=== PATIENT | male | born 1965 | race Caucasian/White ===

== ENCOUNTER 2017-06-06 20:35 | Inpatient (IN) | payer MEDICAID ==
[2017-06-06] MEDS ORDERED: NS 1,000 ML IV ONE ×2 (21:12→22:03)
[2017-06-06 21:19] LABS: PLATELET COUNT 168 10^3/uL (150-400)
--- NOTE | 2017-06-06 21:36 | EDPHY ---
H & P Time Seen by Provider: 06/06/17 21:16 HPI/ROS: CHIEF COMPLAINT: Alcohol intoxication, not eating and vomiting HISTORY OF PRESENT ILLNESS: Patient's roommates called and EMS brought into the ED. For the last 3 days he has been drinking vodka and not eating. Several episodes of vomiting, in the nurse's notes states"something red"but no melena and no red blood per rectum. Denies abdominal pain. Currently he has no medical symptoms when I interviewed him. REVIEW OF SYSTEMS: Eye: no change in vision ENT: no sore throat Cardiac: no chest pain or syncope Pulmonary: no cough or SOB Abdomen: HPI Musculoskeletal: no back pain Skin: no rash Neuro: no headache Constitutional: no fever : no urinary symptoms A comprehensive 10 point review of systems is otherwise negative aside from elements mentioned in the history of present illness. PAST MEDICAL HISTORY: Includes hypertension, gout, alcohol abuse Social history: Recent vodka General Appearance: Alert and conversant, cooperative. Eyes: No scleral icterus. ENT, Mouth: Normal mucous membranes. Respiratory: Normal respiratory effort, breath sounds equal, lungs are clear to auscultation. Cardiovascular: Regular rate and rhythm. Gastrointestinal: Abdomen is soft and non tender. Rectal exam shows yellow stool no melena Neurological: Alert, face symmetric, normal motor and sensory in extremities. Slower to respond, but does answer questions appropriately. Skin: Warm and dry, no rashes. Musculoskeletal: No peripheral edema. Psychiatric: Not agitated. Emergency Department course/MDM: Serial exams, CBC and rectal exam, doubt upper GI bleed or lower GI bleed. Hematocrit 41 a negative stool occult blood. 2203: Creatinine is 2.9, elevated from baseline, likely from dehydration and vomiting. BUN 55, normal sodium. Admission for IV fluids and rehydration. Smoking Status: Current every day smoker Constitutional: Initial Vital Signs Temperature (C) 36.6 C 06/06/17 20:47 Heart Rate 66 06/06/17 20:47 Respiratory Rate 18 06/06/17 20:47 Blood Pressure 97/65 L 06/06/17 20:47 O2 Sat (%) 94 06/06/17 20:47 O2 Delivery Mode Room Air Allergies/Adverse Reactions: No Known Allergies Allergy (Verified 06/08/15 09:11) Home Medications: Medication Instructions Recorded Atenolol [Tenormin 50 mg (*)] 50 mg PO DAILY 10/13/14 Lisinopril [Zestril 40 mg (*)] 40 mg PO DAILY 12/16/13 Medical Decision Making Consult/Admit Bed Type: [place] [id number] - Data Points Laboratory Results: Laboratory Results 06/06/17 20:45 06/06/17 20:45 06/06/17 06/06/17 06/06/17 21:30 20:45 20:45 WBC 9.98 10^3/uL H 10^3/uL (3.80-9.50) RBC 4.49 10^6/uL 10^6/uL (4.40-6.38) Hgb 14.1 g/dL g/dL (13.7-17.5) Hct 41.4 % % (40.0-51.0) MCV 92.2 fL fL (81.5-99.8) MCH 31.4 pg pg (27.9-34.1) MCHC 34.1 g/dL g/dL (32.4-36.7) RDW 14.3 % % (11.5-15.2) Plt Count 168 10^3/uL 10^3/uL (150-400) MPV 10.3 fL fL (8.7-11.7) Neut % (Auto) 36.7 % L % (39.3-74.2) Lymph % (Auto) 53.7 % H % (15.0-45.0) [place] % (Auto) 6.0 % % (4.5-13.0) Eos % (Auto) 1.7 % % (0.6-7.6) Baso % (Auto) 1.6 % % (0.3-1.7) Nucleat RBC Rel Count 0.0 % % (0.0-0.2) Absolute Neuts (auto) 3.66 10^3/uL 10^3/uL (1.70-6.50) Absolute Lymphs (auto) 5.36 10^3/uL H 10^3/uL (1.00-3.00) Absolute Monos (auto) 0.60 10^3/uL 10^3/uL (0.30-0.80) Absolute Eos (auto) 0.17 10^3/uL 10^3/uL (0.03-0.40) Absolute Basos (auto) 0.16 10^3/uL H 10^3/uL (0.02-0.10) Absolute Nucleated RBC 0.00 10^3/uL 10^3/uL (0-0.01) Immature Gran % 0.3 % % (0.0-1.1) Immature Gran # 0.03 10^3/uL 10^3/uL (0.00-0.10) Sodium 141 mEq/L mEq/L (135-145) Potassium 4.9 mEq/L mEq/L (3.5-5.2) Chloride 103 mEq/L mEq/L (97-110) Carbon Dioxide 15 mEq/l L mEq/l (22-31) Anion Gap 23 mEq/L H mEq/L (8-16) BUN 55 mg/dL H mg/dL (7-23) Creatinine 2.9 mg/dL H mg/dL (0.7-1.3) Estimated GFR 23 Glucose 64 mg/dL L mg/dL (70-100) Calcium 9.4 mg/dL mg/dL (8.5-10.4) Stool Occult Bld Scrn NEGATIVE (NEGATIVE) Ethyl Alcohol 414 mg/dL H* mg/dL (0-10) Medications Given: Discontinued Medications Sodium Chloride (Ns) 1,000 mls @ 0 mls/hr IV EDNOW ONE; Wide Open PRN Reason: Protocol Stop: 06/06/17 21:13 Last Admin: 06/06/17 21:18 Dose: 1,000 mls Sodium Chloride (Ns) 1,000 mls @ 0 mls/hr IV EDNOW ONE; Wide Open PRN Reason: Protocol Stop: 06/06/17 22:04 Last Admin: 06/06/17 22:05 Dose: 1,000 mls Departure - Departure Disposition: Home, Routine, Self-Care Clinical Impression: Dehydration Acute renal failure (ARF) Qualifiers: Acute renal failure type: unspecified Qualified Code(s): N17.9 - Acute kidney failure, unspecified Alcoholic intoxication Qualifiers: Complication of substance-induced condition: uncomplicated Qualified Code(s): F10.920 - Alcohol use, unspecified with intoxication, uncomplicated Condition: Fair
[2017-06-06] MEDS: NS 1,000 ML IV SCH (23:33)
[2017-06-06] MEDS: NICOTINE 21 MG/24 HR PATCH TD SCH (23:57)
[2017-06-07] MEDS ORDERED: PANTOPRAZOLE SODIUM 40 MG VIAL IVP ONE (02:51)
--- NOTE | 2017-06-07 02:57 | PDGENHP ---
History and Physical - Chief Complaint nausea vomiting and gi upset - History of Present Illness Source - Patient is able to provide some of the history. He is currently intoxicated but interactive and consistent with answers although I am unable to confirm accuracy. EMR was reviewed and case discussed with ED provider. HPI - Pleasant 51 yo M with pmhx significant for etoh dependence/abuse, HTN, gout, OA, asthma and seasonal allergies who presents to the ED today after roommates called EMS for intractable nausea/vomiting starting today. PAtient reports he has been drinking the last 3 days (1 pint vodka) without any solid food intake. He denies any abdominal pain/melena/hematochezia. Patient does note subjective fevers/chills today. He has chronic rhinorrhea resolved with laying down. He denies any cough worsened from baseline. Patient denies any dysuria/hematuria. He does reports occasional posttussive emesis related to his asthma. History Information - Allergies/Home Medication List Allergies/Adverse Reactions: No Known Allergies Allergy (Verified 06/08/15 09:11) Home Medications: Atenolol [Tenormin 50 mg (*)] 50 mg PO DAILY 12/16/13 [Last Taken 12/16/13] Lisinopril [Zestril 40 mg (*)] 40 mg PO DAILY 12/16/13 [Last Taken 12/16/13] I have personally reviewed and updated: family history, medical history, social history, surgical history - Past Medical History Additional medical history: alcohol dependence with reports of alcohol withdrawal seizures. benign essential HTN, gout, OA, asthma and seasonal allergies - Surgical History Additional surgical history: umbilical hernia repair in youth. appy , septoplasty/sinus surgery. - Family History Additional family history: father - prostate CA. - Social History Smoking Status: Current every day smoker (0.5-0.75 ppd.) Tobacco Use: Cigarettes Alcohol Use: Heavy (1 pint vodka daily if not more.) Drug Use: Marijuana Review of Systems Review of Systems: ROS: 10pt was reviewed & negative except for what was stated in HPI & below Constitutional: Reports: chills, fever. Denies: recent illness EENMT: Reports: nose congestion (Neck rhinorrhea). Denies: double vision, sore throat Cardiac: Reports: no symptoms Respiratory: Reports: cough (Occasional moderate duct of baseline). Denies: shortness of breath Gastrointestinal: Reports: vomitting, nausea. Denies: black stools, rectal bleeding, abdominal pain, diarrhea Genitourinary: Denies: dysuria, hematuria Muscolosketal: Reports: no symptoms Skin: Reports: no symptoms Neurological: Reports: no symptoms Hematologic/Lymphatic: Reports: no symptoms Physical Exam Physical Exam: Selected Entries 06/06/17 20:47 Blood Pressure Automatic Method Heart Rate 66 Respiratory 18 Rate O2 Sat (%) 94 Temperature (C) 36.6 C Blood Pressure 97/65 L Mean Arterial 75 Pressure (MAP) O2 Delivery Room Air Mode Temperature Oral Source Temp Pulse Resp BP Pulse Ox 36.4 C 65 14 102/61 93 06/06/17 22:45 06/06/17 22:45 06/06/17 22:45 06/06/17 22:45 06/06/17 22:45 O2 (L/minute) 1 Constitutional: no apparent distress, not in pain, unkempt, other (NAD. Adult male is lying quietly in bed asleep. He wakes to name. Interactive and inebriated) Eyes: PERRL, anicteric sclera, EOMI, scleral injection Ears, Nose, Mouth, Throat: no oral mucosal ulcers, poor dentition, dry mucous membranes Cardiovascular: regular rate and rhythym, no murmur, rub, or gallop, pulses symmetric bilaterally, No edema Peripheral Pulses: 2+: dorsalis-pedis (R), dorsalis-pedis (L) Respiratory: no respiratory distress, no rales or rhonchi, clear to auscultation , reduced air movement (A diminished at the bases.), No expiratory wheeze Gastrointestinal: normoactive bowel sounds, soft, non-tender abdomen, No guarding, No distension Genitourinary: no bladder tenderness, No mac in urethra Skin: warm, normal color, no rashes or abrasions, No rash Musculoskeletal: full muscle strength, other (Patient moves all extremities while lying in bed. Speed intact.), No generalized weakness Neurologic: AAOx3, CN II-XII Intact, other (No tremor.), No facial droop Psychiatric: poor insight, other (inebriated), No not anxious, No thought process linear, No anxious, No suicidal ideation, No agitated Lab Data & Imaging Review 06/06/17 20:45 06/06/17 20:45 WBC 9.98 10^3/uL (3.80-9.50) H 06/06/17 20:45 RBC 4.49 10^6/uL (4.40-6.38) 06/06/17 20:45 Hgb 14.1 g/dL (13.7-17.5) 06/06/17 20:45 Hct 41.4 % (40.0-51.0) 06/06/17 20:45 MCV 92.2 fL (81.5-99.8) 06/06/17 20:45 MCH 31.4 pg (27.9-34.1) 06/06/17 20:45 MCHC 34.1 g/dL (32.4-36.7) 06/06/17 20:45 RDW 14.3 % (11.5-15.2) 06/06/17 20:45 Plt Count 168 10^3/uL (150-400) 06/06/17 20:45 MPV 10.3 fL (8.7-11.7) 06/06/17 20:45 Neut % (Auto) 36.7 % (39.3-74.2) L 06/06/17 20:45 Lymph % (Auto) 53.7 % (15.0-45.0) H 06/06/17 20:45 [place] % (Auto) 6.0 % (4.5-13.0) 06/06/17 20:45 Eos % (Auto) 1.7 % (0.6-7.6) 06/06/17 20:45 Baso % (Auto) 1.6 % (0.3-1.7) 06/06/17 20:45 Nucleat RBC Rel Count 0.0 % (0.0-0.2) 06/06/17 20:45 Absolute Neuts (auto) 3.66 10^3/uL (1.70-6.50) 06/06/17 20:45 Absolute Lymphs (auto) 5.36 10^3/uL (1.00-3.00) H 06/06/17 20:45 Absolute Monos (auto) 0.60 10^3/uL (0.30-0.80) 06/06/17 20:45 Absolute Eos (auto) 0.17 10^3/uL (0.03-0.40) 06/06/17 20:45 Absolute Basos (auto) 0.16 10^3/uL (0.02-0.10) H 06/06/17 20:45 Absolute Nucleated RBC 0.00 10^3/uL (0-0.01) 06/06/17 20:45 Immature Gran % 0.3 % (0.0-1.1) 06/06/17 20:45 Immature Gran # 0.03 10^3/uL (0.00-0.10) 06/06/17 20:45 Sodium 141 mEq/L (135-145) 06/06/17 20:45 Potassium 4.9 mEq/L (3.5-5.2) 06/06/17 20:45 Chloride 103 mEq/L (97-110) 06/06/17 20:45 Carbon Dioxide 15 mEq/l (22-31) L 06/06/17 20:45 Anion Gap 23 mEq/L (8-16) H 06/06/17 20:45 BUN 55 mg/dL (7-23) H 06/06/17 20:45 Creatinine 2.9 mg/dL (0.7-1.3) H 06/06/17 20:45 Estimated GFR 23 06/06/17 20:45 Glucose 64 mg/dL (70-100) L 06/06/17 20:45 POC Glucose 92 mg/dL (70-100) 06/07/17 00:23 Calcium 9.4 mg/dL (8.5-10.4) 06/06/17 20:45 Total Bilirubin 0.8 mg/dL (0.1-1.4) 06/06/17 20:45 Conjugated Bilirubin 0.6 mg/dL (0.0-0.5) H 06/06/17 20:45 Unconjugated Bilirubin 0.2 mg/dL (0.0-1.1) 06/06/17 20:45 AST 70 IU/L (17-59) H 06/06/17 20:45 ALT 52 IU/L (21-72) 06/06/17 20:45 Alkaline Phosphatase 76 IU/L (38-126) 06/06/17 20:45 Total Protein 8.8 g/dL (6.3-8.2) H 06/06/17 20:45 Albumin 4.9 g/dL (3.5-5.0) 06/06/17 20:45 Lipase 183 IU/L (23-300) 06/06/17 20:45 Stool Occult Bld Scrn NEGATIVE (NEGATIVE) 06/06/17 21:30 Ethyl Alcohol 414 mg/dL (0-10) H* 06/06/17 20:45 Assessment & Plan Assessment: 51-year-old male with his alcohol dependence under recent 3 day binge of hard liquor who presents emergency department with nausea vomiting fen have acute renal failure. #Acute renal failure (ARF) (Acute) - likely pre renal in nature given patient's hypotension and severe dehydration. Repeat BMP in the morning. Monitor electrolytes. #Nausea vomiting - likely related to alcohol gastritis. It will be give dose of IV Protonix on and then started on a p. O. Once he is able to tolerate diet. #Dehydration (Acute) - related to poor oral intake and nausea and vomiting. Continue with IV fluid placement #Hypotension - resolved status post L in the emergency department will saline. Secondary to hypovolemia. #Alcoholic intoxication (Acute) - patient not interested in cessation at this time but this was courage. He will based on the while protocol but currently is inebriated. alcohol level is greater than 400. Pale be plan see protocol. I ME Mac catheterization multivitamin we spent orally as tolerated. Will hold off on give patient any dextrose until he has received thiamine and can't tolerate any oral intake but has been able to sips juice. #Hypoglycemia - patient with this nausea vomiting and several days of a limited oral intake of solids. Will try have a med aunts diet. PPI as noted above. Alcohol cessation has been encouraged. Will monitor Accu-Cheks and patient's blood sugars stabilized. #History of benign essential hypertension - blood sugars improved status post IV fluids. Will monitor closely and hold off on patient's atenolol lisinopril is severe dehydration due renal failure time. #Asthma exacerbation - will make a albuterol treatment elbow can FEN - IVF as above. Electrolyte monitoring and replacement p.r.n.. Advance diet as tolerated. PPX-SCDs and Lovenox if patient should stay additional day Cor-full Disposition-patient admitted inpatient status given severity renal function and dehydration. Additionally patient with recurrent hypoglycemia that will need to be still eyes before discharge.
[2017-06-07] MEDS: HEPARIN 5,000 UNIT/0.5 ML SYR SC SCH ×4 (04:46→19:57)
[2017-06-07] MEDS ORDERED: LORazepam 2 MG/ML INJ IVP PRN (06:41)
[2017-06-07] MEDS: NS 1,000 ML IV SCH ×3 (07:23→22:55)
[2017-06-07] MEDS: THIAMINE HCL 100 MG TAB PO SCH ×2 (08:25→08:41)
[2017-06-07] MEDS: MULTIVITAMINS 1 EACH TAB PO SCH (08:25)
[2017-06-07 08:49] LABS: PLATELET COUNT 123 10^3/uL (150-400)
[2017-06-07] MEDS ORDERED: FOLIC ACID 1 MG TAB PO SCH (09:00)
[2017-06-07 09:11] LABS: INR 1.12 (0.83-1.16); PROTIME(PATIENT) 14.6 SEC (12.0-15.0)
--- NOTE | 2017-06-07 10:00 | PDMN ---
Medical Necessity Medical necessity: est los>2mn for ARF, N/V r/t alcohol gastritis, dehydration, etoh intoxication, hypoglycemia, and asthma exacerbation; admit for IVF, IV PPI , monitor glucose, and CIWA; comorbid htn, etoh abuse with hx withdrawal sz's; per order and H&P 06/06/17
--- NOTE | 2017-06-07 11:05 | HOSPPROG ---
Hospitalist Progress Note Assessment/Plan: #YAIMA: due to hypotension, dehydration. Cont IVFs. Hold MOSES-I. Check UA and lytesHy #Etoh intoxication: monitor for withdrawal. Counseled on cessation. Does not want to quit #Hypoglycemia: due to decreased PO intake. No signs of infection. No eating #N/V: due to gastritis #Asthma: no signs of exacerbation #Acute hypoxic resp failure: #h/o HTN: hold MOSES-I with YAIMA #DVT ppx: SCDs #Disp: cont inpatient admission for IVFs, Etoh w/d Subjective: mild nausea today Objective: Vital Signs Temp Pulse Resp BP Pulse Ox 36.8 C 78 18 101/63 97 06/07/17 07:36 06/07/17 07:36 06/07/17 07:36 06/07/17 07:36 06/07/17 07:36 Laboratory Results 06/07/17 08:27 06/07/17 08:27 06/06/17 06/07/17 06/08/17 05:59 05:59 05:59 Intake Total 3485 Output Total 550 875 Balance 2935 -875 PT 14.6 SEC (12.0-15.0) 06/07/17 08:27 INR 1.12 (0.83-1.16) 06/07/17 08:27 - Physical Exam Constitutional: no apparent distress Eyes: PERRL Ears, Nose, Mouth, Throat: dry mucous membranes Cardiovascular: regular rate and rhythym Respiratory: no respiratory distress Gastrointestinal: tenderness (mild epigastric TTP) Genitourinary: no bladder fullness Skin: warm Musculoskeletal: full muscle strength Neurologic: AAOx3, CN II-XII Intact, other (mild tongue fasiculations and hand tremors), No asterixes Psychiatric: interacting appropriately ICD10 Worksheet Patient Problems: Problems Problem Status Onset Acute renal failure (ARF) Acute Alcoholic intoxication Acute Dehydration Acute Community acquired pneumonia Acute
[2017-06-07] MEDS: ONDANSETRON 4 MG/2 ML VIAL IVP PRN (11:45)
--- NOTE | 2017-06-07 15:52 | ASMTCAGE ---
CAGE Do you feel you ought to Answers: Yes cut down on your drinking or drug use? Do people annoy you by Answers: No criticizing your drinking or drug use? Do you feel guilty about Answers: No your drinking or drug use? Do you drink or use drugs Answers: No first thing in the morning ([employer] Counselor)? Date Signed: 06/07/2017 03:52 PM Electronically Signed By:MARGARET Hill
--- NOTE | 2017-06-07 16:00 | ASMTCASEMG ---
Living Arrangements What is your living Answers: Alone arrangement? Who do you live with? Type Of Residence What kind of residence do Answers: Apartment you live in? Discharge Plan Comments Coordination Status Comments Notes: Pt is a 51 y/o man admitted for dehydration and ARF. Pt reportedly uses ETOH daily. Pt reports that he only drinks after he gets out of work and buys a pint at a time to control his etoh intake. CM met w/ pt for dispo planning. Pt does not have any interest on stopping his etoh. Pt is not interested in resources at this time. CM informed pt to contact his PCP if he ever wanted to stop drinking. No other anticipated needs at this time. No therapies ordered at this time. CM to follow. Plan: Independent Date Signed: 06/07/2017 04:00 PM Electronically Signed By:MARGARET Hill
[2017-06-07] MEDS: NICOTINE 21 MG/24 HR PATCH TD SCH (20:36)
[2017-06-08] MEDS ORDERED: ACETAMINOPHEN 500 MG TAB PO PRN (01:32)
[2017-06-08 04:26] VITALS: RESP 18
[2017-06-08] MEDS ORDERED: ATENOLOL 50 MG TAB PO SCH (05:00)
[2017-06-08] MEDS ORDERED: FOLIC ACID 1 MG TAB PO SCH (05:00)
[2017-06-08] MEDS: HEPARIN 5,000 UNIT/0.5 ML SYR SC SCH (05:43)
[2017-06-08] MEDS ORDERED: PANTOPRAZOLE SODIUM 40 MG TAB PO SCH (06:00)
[2017-06-08] MEDS: NS 1,000 ML IV SCH (06:31)
[2017-06-08 07:41] VITALS: BP 144/103; PULSE 67; TEMP 97.7; O2SAT 94
[2017-06-08] MEDS ORDERED: Herbals/Supplements -Info Only PO SCH (09:00)
[2017-06-08] MEDS: THIAMINE HCL 100 MG TAB PO SCH (10:34)
[2017-06-08] MEDS: MULTIVITAMINS 1 EACH TAB PO SCH (10:34)
[2017-06-08] MEDS: ONDANSETRON 4 MG/2 ML VIAL IVP PRN (10:35)
--- NOTE | 2017-06-08 13:33 | GDS ---
[f rep st] DISCHARGE SUMMARY DISCHARGE DIAGNOSES: 1. Acute kidney injury secondary to nausea and vomiting. 2. Alcohol intoxication. 3. Hypoglycemia. 4. Nausea, vomiting. 5. Asthma. 6. Acute hypoxic respiratory failure. 7. Hypertension. HISTORY OF PRESENT ILLNESS: A 51-year-old male with alcohol dependence, drinking at least a pint daily, hypertension, who was brought in by EMS after roommate called for intractable nausea/vomiting. The patient says he had been drinking, for the past 3 days, a pint of vodka without any solid food intake. He denied any abdominal pain, melena, or hematochezia. He endorsed mild subjective fevers and chills. Had chronic rhinorrhea, resolved when lying down. No productive cough. No shortness of breath. HOSPITAL COURSE BY PROBLEM: 1. YAIMA: due to decreased p.o. intake, nausea, and vomiting. Creatinine has normalized to 1 with IV fluids. Encouraged to drink plenty of fluids. 2. Alcohol intoxication: Counseled him extensively on cessation. He has no desire to quit and understands the risks could be detrimental and life- threatening. 3. Hypoglycemia: resolved once eating normal meals. No signs or symptoms of infection. 4. Nausea/vomiting: gastritis related to Etoh. 5. Asthma: No evidence of exacerbation. 6. Acute hypoxic respiratory failure: due to acute intoxication. Now stable on RA.. 7. Hypertension: held MOSES-I with YAIMA, but he may resume this and atenolol. DISPOSITION: Patient is stable for discharge home. MEDICATIONS: Resume home medications. FOLLOWUP: Primary care physician in 2-4 weeks. Encourage treatment for alcohol. PHYSICAL EXAMINATION: VITAL SIGNS: Today, temperature 36.5, blood pressure 151 /96, heart rate in the 60s, respiration rate 18, 94% on room air. GENERAL: Well appearing, sitting up, smiling, more color. HEENT: PERRLA. Moist mucous membranes. CV: Regular rate and rhythm. No murmurs, gallops, or rubs. LUNGS : Clear. ABDOMEN: Soft. Mild epigastric tenderness. No rebound or guarding. : No Long. MUSCULOSKELETAL: 5/5 upper and lower extremity strength. NEUROLOGIC: 2 through 12 intact. PSYCH: Alert and oriented x3. /[id number]/[facility]
== END 2017-06-08 12:00 | disposition home or self-care (01) | DRG 682 ==
LOC: EDUNIT# → F2W 22:45
PROVIDERS: ADMIT Family Medicine; ATTEND Internal Medicine
DX: N17.9 Acute kidney failure, unspecified (principal); J96.01 Acute respiratory failure with hypoxia; F10.229 Alcohol dependence with intoxication, unspecified; E16.2 Hypoglycemia, unspecified; K29.20 Alcoholic gastritis without bleeding; J45.909 Unspecified asthma, uncomplicated
CPT/HCPCS: G0480; J1644; J2060; J2405

== ENCOUNTER 2017-08-02 20:48 | Emergency (ER) | payer MEDICAID ==
--- NOTE | 2017-08-02 21:15 | EDPHY ---
General - History Smoking Status: Current every day smoker Time Seen by Provider: 08/02/17 21:06 Narrative: CHIEF COMPLAINT: Fall, intoxicated, hematoma HISTORY OF PRESENT ILLNESS: Patient presents by EMS with reports of alcohol intoxication and fall. He says that he does not know what happened but "of course I was drinking. I drink like a fish." He says that he does not know exactly what happened, but he fell. He struck his head on an unknown surface. He knows that he did not lose consciousness because he has been awake ever since. He has a mild headache just where the"bump is on my head." No neck pain or stiffness. No vomiting. No visual disturbance. No injury elsewhere. He admits to heavy alcohol ingestion and some marijuana use tonight. No other associated complaints or modifying factors. REVIEW OF SYSTEMS: Ten systems reviewed and are negative unless otherwise noted in the HPI PCP: Dr. Severino SPECIALISTS: None PAST MEDICAL HISTORY: Hypertension, gout, alcohol abuse PAST SURGICAL HISTORY: No recent surgeries SOCIAL HISTORY: Daily smoker. Daily heavy alcohol use. Occasional marijuana use FAMILY HISTORY: Noncontributory EXAMINATION General Appearance: Alert, no distress Head: normocephalic. Left forehead hematoma measuring 2 cm. No bleeding. No depression. No Goldsmith sign. No raccoon eyes. Eyes: Pupils equal and round, no conjunctival pallor or injection. EOMs symmetric with no nystagmus or dysconjugate gaze. ENT, Mouth: Mucous membranes moist Neck: Normal inspection. C-collar placed after arrival. Midline trachea Respiratory: Lungs are clear to auscultation Cardiovascular: Regular rate and rhythm Gastrointestinal: Abdomen is soft and nontender Back: non-tender, no bony abnormalities Neurological: GCS 15. A&O, nonfocal, normal gait. Strength is symmetric. Normal finger to nose. No dysmetria Skin: Warm and dry, no rash. Left forehead frontal hematoma as above. Extremities: Nontender, no pedal edema Psychiatric: Mood and affect normal DIFFERENTIAL DIAGNOSES: Including but not limited to hematoma, skull fracture, intracranial hemorrhage, concussion, blunt trauma MDM: 9:10 p.m. Acute alcohol intoxication with reported mechanical fall on frontal hematoma. He has no complaints of any kind other than wanting to go home. Because he is intoxicated I cannot clear him clinically by nexus criteria, thus he will be placed in a C-collar and we will obtain CT scans of the head cervical spine. He is in no acute distress. Vital signs are stable with strong odor of alcohol about him. 9:57 p.m. Notified by radiologist Dr. Alicia. CT scans of the head and cervical spine reveal no acute findings. 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 There is also remote injury to C2 this congenital versus old trauma. I re-evaluated the patient. Clear the cervical collar as it was placed here not by EMS. He remains neuro intact in the extremities post removal. Range of motion is supple and without any pain. He is intoxicated but he is awake and alert no acute distress. We will attempt ambulating. 10:08 p.m. The patient has ambulated in the emergency department with no difficulty. He is not ataxic. He has no nystagmus. However, he does have mild hypoxemia on room air that have just been notified of. He was ambulated around the emergency department and his pulse oximetry is at 86-88% on room air. We will continue to monitor this, and I will administer a DuoNeb as he is a smoker. I have also ordered a chest x-ray to rule out pneumonia. He has no respiratory or thoracic complaints at this time 11:00 p.m. The patient has ambulated without difficulty. His oxygenation has remained within normal limits after the DuoNeb treatment. No pneumonia on chest x-ray. I do feel he is stable for discharge home. I discussed with Dr. Rai, and she agrees. The patient will be taken home by cab. Discharged stable condition. SUPERVISION: Patient was independently examined, but I discussed the case with my secondary supervising physician Dr. Rai ([facility]) Discussion: The patient was evaluated and managed by the Physician Chair Finisher. I discussed the patient's presentation and course with the physician environmental engineering assistant and agree with the evaluation. My co-signature indicates that I have reviewed this chart and I agree with the findings and plan of care as documented. I am the secondary supervising physician. (Nohemi Rai) - Objective Vital Signs: Initial Vital Signs Temperature (C) 36.6 C 08/02/17 20:45 Heart Rate 89 08/02/17 20:45 Respiratory Rate 18 08/02/17 20:45 Blood Pressure 106/75 08/02/17 20:45 O2 Sat (%) 94 08/02/17 20:45 O2 Delivery Mode Room Air O2 (L/minute) 2 Allergies/Adverse Reactions: No Known Allergies Allergy (Verified 06/08/15 09:11) Home Medications: Medication Instructions Recorded Herbals/Supplements -Info Only 1 ea PO DAILY 06/07/17 Lisinopril [Zestril 20 mg (*)] 20 mg PO DAILY@06/07/17 Medications Given: Discontinued Medications Albuterol/Ipratropium (Duoneb) 3 ml IH EDNOW ONE Stop: 08/02/17 22:10 Last Admin: 08/02/17 22:19 Dose: 3 ml Departure - Departure Disposition: Home, Routine, Self-Care Clinical Impression: Alcohol intoxication Hematoma of frontal scalp Qualifiers: Encounter type: initial encounter Qualified Code(s): S00.03XA - Contusion of scalp, initial encounter Closed head injury Qualifiers: Encounter type: initial encounter Qualified Code(s): S09.90XA - Unspecified injury of head, initial encounter Condition: Good Instructions: Concussion (ED), Head Injury (ED), Alcohol Intoxication (ED), Abuse of Alcohol (ED) Additional Instructions: 1. Contact primary care physician 2. Referrals: NONE *PRIMARY CARE P,. [Primary Care Provider] - As per Instructions
[2017-08-02] MEDS ORDERED: IPRATROPIUM/ALBUTEROL 3 ML DEYVIAL IH ONE (22:09)
[2017-08-02 23:27] VITALS: BP 138/88
== END 2017-08-02 23:25 | disposition home or self-care (01) ==
LOC: EDUNIT#
DX: S00.03XA Contusion of scalp, initial encounter (principal); F10.920 Alcohol use, unspecified with intoxication, uncomplicated; I10 Essential (primary) hypertension; F17.200 Nicotine dependence, unspecified, uncomplicated; W18.09XA Striking against other object with subsequent fall, initial encounter

== ENCOUNTER 2017-08-24 02:26 | Emergency (ER) | payer MEDICAID ==
--- NOTE | 2017-08-24 02:37 | EDPHY ---
H & P Stated Complaint: EtOH Source: EMS Exam Limitations: Intoxication - Personal History Current Tetanus Diphtheria and Acellular Pertussis (TDAP): Yes Tetanus Vaccine Date: 2011 - Medical/Surgical History Hx Asthma: No Hx Chronic Respiratory Disease: Yes Hx Diabetes: No Hx Cardiac Disease: No Hx Renal Disease: No Hx Cirrhosis: No Hx Alcoholism: No Hx HIV/AIDS: No Hx Splenectomy or Spleen Trauma: No Other PMH: HTN, gout, ETOH abuse. bronchitis - Social History Smoking Status: Current every day smoker Time Seen by Provider: 08/24/17 02:29 HPI/ROS: HPI The patient presents with alcohol intoxication, [place] He [place] to walk. He denies any complaints currently. REVIEW OF SYSTEMS Constitutional: No fever, no chills. Eyes: No discharge. ENT: No sore throat. Cardiovascular: No chest pain, no palpitations. Respiratory: No cough, no shortness of breath. Gastrointestinal: No abdominal pain, no vomiting. Genitourinary: No hematuria. Musculoskeletal: No back pain. Skin: No rashes. Neurological: No headache. PMHx: History of rib fractures, hypertension, gout Soc Hx: Alcohol abuse PHYSICAL General Appearance: Sleepy, seemingly intoxicated Eyes: Pupils equal and round no pallor or injection ENT, Mouth: Mucous membranes moist Respiratory: There are no retractions, lungs are clear to auscultation Cardiovascular: Regular rate and rhythm Gastrointestinal: Abdomen is soft and non-tender, no masses, bowel sounds normal Neurological: A&O, moves all extremities Skin: Warm and dry, no rashes Musculoskeletal: Neck is supple non tender Extremities: symmetrical, full range of motion Psychiatric: Patient is oriented X 3, there is no agitation (Riguzzi,Susie) Constitutional: Initial Vital Signs Temperature (C) 36.4 C 08/24/17 02:28 Heart Rate 65 08/24/17 02:28 Respiratory Rate 16 08/24/17 02:28 Blood Pressure 106/74 08/24/17 02:28 O2 Sat (%) 90 L 08/24/17 02:28 O2 Delivery Mode Nasal Cannula O2 (L/minute) 2 Allergies/Adverse Reactions: No Known Allergies Allergy (Verified 08/24/17 02:28) Home Medications: Medication Instructions Recorded Herbals/Supplements -Info Only 1 ea PO DAILY 06/07/17 Lisinopril [Zestril 20 mg (*)] 20 mg PO DAILY@06/07/17 Medical Decision Making Differential Diagnosis: 51-year-old male with history of alcohol abuse, presents brought in by ambulance for alcohol intoxication and inability to walk. [facility] hold. He does not have any complaints. The patient was monitored here until he was able to walk. At about 7:00 a.m. He was discharged to the [facility] with the police after ambulating with a steady gait and sobering appropriately. Differential diagnosis includes alcohol intoxication, polysubstance abuse, less likely closed head injury given no signs of trauma inappropriate metabolization with the emergency department. (Susie Mon) Other Provider: Patient evaluated by myself at 6:45 a.m. Alert, ambulatory, not ataxic, clinically sober, no medical complaints at this time, stable for discharge to detox. (Enrico Gilbert) Departure - Departure Disposition: Home, Routine, Self-Care Clinical Impression: Alcoholic intoxication Qualifiers: Complication of substance-induced condition: with delirium Qualified Code(s): F10.921 - Alcohol use, unspecified with intoxication delirium Condition: Good Instructions: Alcohol Intoxication (ED), Abuse of Alcohol (ED) Referrals: [facility] [Outside] - As per Instructions
[2017-08-24 06:32] VITALS: BP 114/84
[2017-08-24] MEDS ORDERED: CHLORDIAZEPOXIDE 25MG PREPK#6 BTL TAKEHOME ONE ×2 (06:59→07:00)
== END 2017-08-24 07:10 | disposition home or self-care (01) ==
LOC: EDUNIT#
DX: F10.921 Alcohol use, unspecified with intoxication delirium (principal); I10 Essential (primary) hypertension; F17.200 Nicotine dependence, unspecified, uncomplicated

== ENCOUNTER 2017-08-29 07:55 | Emergency (ER) | payer MEDICAID ==
--- NOTE | 2017-08-29 07:55 | EDPHY ---
H & P Time Seen by Provider: 08/29/17 07:55 HPI/ROS: CHIEF COMPLAINT: I hurt everywhere HISTORY OF PRESENT ILLNESS: Patient was brought in by EMS. He went to urgent care and walked in stating that he had fallen and hurt everywhere. Patient drinks chronic large amounts of alcohol. He has an abrasion on the right side of his face in a bruise on his left arm. He denies any specific new injury. Specifically denies headache or neck or back pain. REVIEW OF SYSTEMS: Eye: no change in vision ENT: no sore throat Cardiac: no chest pain or syncope Pulmonary: no cough or SOB Abdomen: no vomiting, diarrhea, abdominal pain. No black or bloody stools. No hematemesis or coffee-ground emesis. Musculoskeletal: no back pain or neck pain Skin: Bruising on the left arm and the right forearm Neuro: no headache Constitutional: no fever : no urinary symptoms A comprehensive 10 point review of systems is otherwise negative aside from elements mentioned in the history of present illness. PAST MEDICAL HISTORY: Gout hypertension and alcoholism Social history: Recent alcohol General Appearance: Alert and conversant, cooperative. Eyes: No scleral icterus. Pupils equal reactive extraocular motion intact. ENT, Mouth: Normal mucous membranes. Respiratory: Normal respiratory effort, breath sounds equal, lungs are clear to auscultation. Cardiovascular: Regular rate and rhythm. Gastrointestinal: Abdomen is soft and non tender. Rectal exam performed and brownish yellow stool sent for occult blood. No melena. Neurological: Alert, face symmetric, normal motor and sensory in extremities. Skin: Bruising on the right forearm and the left upper arm. Abrasion to the right knee. Musculoskeletal: Tenderness to palpation over the right thenar eminence, but no tenderness on the right wrist elbow or shoulder. Remainder of extremities are nontender, and no cervical thoracic or lumbar spine tenderness to palpation. Normal range of motion of both knees and ankles. No snuffbox tenderness in the right wrist. Psychiatric: Not agitated. Emergency Department course/MDM: Patient was here on 08/24/2017 for alcohol intoxication. Blood pressure 95 systolic. History of acute kidney injury and creatinine of 2.9, will check labs and right hand x-ray. Clinically has primarily alcohol intoxication. 842: Hematocrit today noted 29, 37 on 06/07/2017. 856: SBP 84, NS hydration and recheck hematocrit. 930: Hematocrit 31, patient does not have evidence on exam or evaluation of acute gastrointestinal bleed, decreasing hematocrit requires outpatient follow- up. 1041: Ambulatory, refused detox, has no medical complaints at this time, stable for discharge. Hematocrit stable in the emergency department although decreased from previous, does not have vomiting or diarrhea or melena or blood on rectal exam, I think acute upper GI bleed is unlikely. Constitutional: Initial Vital Signs Temperature (C) 36.8 C 08/29/17 07:55 Heart Rate 75 08/29/17 07:55 Respiratory Rate 16 08/29/17 07:55 Blood Pressure 95/66 L 08/29/17 07:55 O2 Sat (%) 92 08/29/17 07:55 O2 Delivery Mode Room Air O2 (L/minute) 2 Allergies/Adverse Reactions: No Known Allergies Allergy (Verified 08/29/17 08:07) Home Medications: Medication Instructions Recorded Herbals/Supplements -Info Only 1 ea PO DAILY 06/07/17 Lisinopril [Zestril 20 mg (*)] 20 mg PO DAILY@05 06/07/17 Medical Decision Making - Diagnostics Imaging Results: Imaging Impressions Hand X-Ray 08/29/17 08:05 Impression: No acute osseous abnormality seen right hand. Imaging: I viewed and interpreted images myself - Data Points Laboratory Results: Laboratory Results 08/29/17 08:25 08/29/17 08:25 08/29/17 08/29/17 08/29/17 09:14 08:45 08:25 WBC RBC Hgb POC Hgb 10.5 gm/dL L gm/dL (13.7-17.5) Hct POC Hct 31 % L % (40-51) MCV MCH MCHC RDW Plt Count MPV Neut % (Auto) Lymph % (Auto) [place] % (Auto) Eos % (Auto) Baso % (Auto) Nucleat RBC Rel Count Absolute Neuts (auto) Absolute Lymphs (auto) Absolute Monos (auto) Absolute Eos (auto) Absolute Basos (auto) Absolute Nucleated RBC Immature Gran % Immature Gran # POC Sodium 140 mEq/L mEq/L (135-145) Sodium 141 mEq/L mEq/L (135-145) POC Potassium 3.1 mEq/L L mEq/L (3.3-5.0) Potassium 3.4 mEq/L mEq/L (3.3-5.0) POC Chloride 103 mEq/L mEq/L (97-110) Chloride 105 mEq/L mEq/L (97-110) Carbon Dioxide 23 mEq/l mEq/l (22-31) Anion Gap 13 mEq/L mEq/L (8-16) POC BUN 18 mg/dL mg/dL (7-23) BUN 19 mg/dL mg/dL (7-23) Creatinine 1.0 mg/dL mg/dL (0.7-1.3) POC Creatinine 1.3 mg/dL mg/dL (0.7-1.3) Estimated GFR > 60 Glucose 101 mg/dL H mg/dL (70-100) POC Glucose 103 mg/dL H mg/dL (70-100) Calcium 8.9 mg/dL mg/dL (8.5-10.4) Stool Occult Bld Scrn NEGATIVE (NEGATIVE) Ethyl Alcohol 378 mg/dL H mg/dL (0-10) 08/29/17 08:25 WBC 7.27 10^3/uL 10^3/uL (3.80-9.50) RBC 3.09 10^6/uL L 10^6/uL (4.40-6.38) Hgb 10.0 g/dL L g/dL (13.7-17.5) POC Hgb Hct 29.8 % L % (40.0-51.0) POC Hct MCV 96.4 fL fL (81.5-99.8) MCH 32.4 pg pg (27.9-34.1) MCHC 33.6 g/dL g/dL (32.4-36.7) RDW 14.9 % % (11.5-15.2) Plt Count 121 10^3/uL L 10^3/uL (150-400) MPV 10.1 fL fL (8.7-11.7) Neut % (Auto) 54.6 % % (39.3-74.2) Lymph % (Auto) 28.1 % % (15.0-45.0) [place] % (Auto) 9.2 % % (4.5-13.0) Eos % (Auto) 6.2 % % (0.6-7.6) Baso % (Auto) 1.1 % % (0.3-1.7) Nucleat RBC Rel Count 0.0 % % (0.0-0.2) Absolute Neuts (auto) 3.97 10^3/uL 10^3/uL (1.70-6.50) Absolute Lymphs (auto) 2.04 10^3/uL 10^3/uL (1.00-3.00) Absolute Monos (auto) 0.67 10^3/uL 10^3/uL (0.30-0.80) Absolute Eos (auto) 0.45 10^3/uL H 10^3/uL (0.03-0.40) Absolute Basos (auto) 0.08 10^3/uL 10^3/uL (0.02-0.10) Absolute Nucleated RBC 0.00 10^3/uL 10^3/uL (0-0.01) Immature Gran % 0.8 % % (0.0-1.1) Immature Gran # 0.06 10^3/uL 10^3/uL (0.00-0.10) POC Sodium Sodium POC Potassium Potassium POC Chloride Chloride Carbon Dioxide Anion Gap POC BUN BUN Creatinine POC Creatinine Estimated GFR Glucose POC Glucose Calcium Stool Occult Bld Scrn Ethyl Alcohol Medications Given: Discontinued Medications Chlordiazepoxide (Librium 25 Mg Prepack#6) 1 btl TAKEHOME EDNOW ONE Stop: 08/29/17 11:11 Last Admin: 08/29/17 11:32 Dose: Not Given Sodium Chloride (Ns) 1,000 mls @ 0 mls/hr IV EDNOW ONE; Wide Open PRN Reason: Protocol Stop: 08/29/17 08:56 Last Admin: 08/29/17 09:02 Dose: 1,000 mls Point of Care Test Results: Chemistry 08/29/17 09:14 POC Sodium 140 mEq/L mEq/L (135-145) POC Potassium 3.1 mEq/L L mEq/L (3.3-5.0) POC Chloride 103 mEq/L mEq/L (97-110) POC BUN 18 mg/dL mg/dL (7-23) POC Creatinine 1.3 mg/dL mg/dL (0.7-1.3) POC Glucose 103 mg/dL H mg/dL (70-100) ISTAT H&H 08/29/17 09:14 POC Hgb 10.5 gm/dL L gm/dL (13.7-17.5) POC Hct 31 % L % (40-51) Departure - Departure Disposition: Home, Routine, Self-Care Clinical Impression: Alcoholic intoxication Qualifiers: Complication of substance-induced condition: uncomplicated Qualified Code(s): F10.920 - Alcohol use, unspecified with intoxication, uncomplicated Contusion of right hand Qualifiers: Encounter type: initial encounter Qualified Code(s): S60.221A - Contusion of right hand, initial encounter Anemia Qualifiers: Anemia type: unspecified type Qualified Code(s): D64.9 - Anemia, unspecified Condition: Good Instructions: Alcohol Intoxication (ED) Referrals: [facility],. [Clinic] - As per Instructions (You should follow-up this week in the office for evaluation of a lower red blood cell count than previous.)
[2017-08-29 08:35] LABS: PLATELET COUNT 121 10^3/uL (150-400)
[2017-08-29] MEDS ORDERED: NS 1,000 ML IV ONE (08:55)
[2017-08-29] MEDS ORDERED: CHLORDIAZEPOXIDE 25MG PREPK#6 BTL TAKEHOME ONE (11:10)
[2017-08-29 11:32] VITALS: BP 110/76
--- NOTE | 2017-08-29 14:48 | ASDISCHSUM ---
Discharge Information Plan Status:Homeless/Half-Way Medically Cleared to Leave: Discharge Date:08/29/2017 11:15 AM CM D/C Disposition:Streets (Homeless) ADT D/C Disposition:Home, Routine, Self-Care Projected Discharge Date:08/29/2017 11:15 AM Transportation at D/C:None or Unknown Discharge Delay Reason: Follow-Up Date:08/29/2017 11:15 AM Discharge Slot: Final Diagnosis: Placement Information Patient Contact Information Contact Name:FRANCES Relationship:Mother Address:[address] City:[place] Alternate Phone: [facility]/Zip Code:[place] [address] Email: Financial Information Financial Class:Medicaid Primary Plan Desc:[employer]ICA[employer] FIRST [employer]OR COMMUNICATIONS Primary Plan Number:[id number] Secondary Plan Desc: Secondary Plan Number: Assessment Information [facility] CM Progress Note CM Note CM Note Notes: Spoke w/pt about ETOH abuse treatment options. Pt refusing to go to [facility] Det[facility]. Pt states he is not interested in quitting drinking, stating "I don't like being drunk but I like getting drunk. It is sustenance." Pt mentioned he was fired from his job today "because I have pneumonia." Pt also lost his housing in the past couple of weeks. Pt states he has completed Coordinate Entry and was referred to [facility] to Home snf and says he is "2nd on the list" to get a reserved cot there. Pt states he had been living w/his girlfriend, Cathy, but he got kicked out of her place. Pt states he used to be seen by Praveen Severino but it has been more than a year. This CM to follow-up w/[facility] and request them reaching out to the patient either via his cell phone # [phone] or at [facility]. Pt states he was recently seen at [facility] for "pneumonia." Pt was provided a Rxn for Albuterol and Z-Stuart. Pt states he had one more dose of his Z-Stuart left but lost his backpack. This was relayed to the ED MD and he states pt needs to follow up w/[facility]. Pt continued to decline/refuse to go to detox and independently ambulated out of the ED. Date Signed: 08/29/2017 02:46 PM Electronically Signed By:Rosi Rodriguez RN Intervention Information Intervention Type:Community Resources Date of Service:08/29/2017 02:46 PM Patient Type:Emergency Room Staff Member:GABRIELE Rodriguez [place] Hours:0.25 Discipline:Nutrition Aide Severity: Comment: Intervention Type:Health Clinic Date of Service:08/29/2017 02:46 PM Patient Type:Emergency Room Staff Member:GABRIELE Rodriguez [place] Hours:0.25 Discipline:Nutrition Aide Severity: Comment:
== END 2017-08-29 11:15 | disposition home or self-care (01) ==
LOC: EDUNIT#
DX: S50.11XA Contusion of right forearm, initial encounter (principal); D64.9 Anemia, unspecified; I10 Essential (primary) hypertension; E86.9 Volume depletion, unspecified; F10.920 Alcohol use, unspecified with intoxication, uncomplicated; W18.39XA Other fall on same level, initial encounter
CPT/HCPCS: 82435-PO; 82565-PO; 82947-PO; 84132-PO; 84295-PO; 84520-PO; 85014-PO; G0480